=== PATIENT | male | born 1950 | race Caucasian/White ===

== ENCOUNTER 2017-11-17 13:11 | Emergency (ER) | payer OTHER, MEDICARE ==
[2017-11-17 13:18] VITALS: BMI 31.1
[2017-11-17] MEDS ORDERED: ACETAMINOPHEN 500 MG TABLET (FP) PO ONE (13:32)
--- NOTE | 2017-11-17 13:36 | PDOC ---
History of Present Illness - General Chief Complaint: SIRS, Suspected/Possible Stated Complaint: PAIN Time Seen by Provider: 11/17/17 13:30 History Source: Patient Exam Limitations: No Limitations - History of Present Illness Timing/Duration: reports: getting worse Severity: reports: mild, moderate Associated Symptoms: reports: chest pain/soreness, fever/chills Past History - Past Medical History Allergies/Adverse Reactions: Allergies Allergy/AdvReac Type Severity Reaction Status Date / Time No Known Allergies Allergy Verified 11/17/17 13:13 COPD: No - Immunization History Immunization Up to Date: Yes - Suicide/Smoking/Psychosocial Hx Smoking History: Never smoked *Physical Exam - Vital Signs Last Vital Signs Temp Pulse Resp BP Pulse Ox 101.2 F H 81 20 130/60 97 11/17/17 13:13 11/17/17 13:13 11/17/17 13:13 11/17/17 13:13 11/17/17 13:13 *DC/Admit/Observation/Transfer - Discharge Dispostion Disposition: HOME Condition at time of disposition: Stable Decision to Admit order: No - Referrals Referrals: ON STAFF,NOT [Primary Care Provider] - - Patient Instructions - Post Discharge Activity
[2017-11-17] MEDS ORDERED: ACETAMINOPHEN 500 MG TABLET (FP) ONE (13:37)
[2017-11-17 14:06] LABS: URINE APPEARANCE SLCLOUDY; URINE BILIRUBIN NEGATIVE (<2.0 mg/dL); URINE COLOR DKYELLOW; URINE GLUCOSE (UA) NEGATIVE (NEGATIVE); URINE KETONE NEGATIVE (NEGATIVE); URINE LEUK ESTERASE NEGATIVE (NEGATIVE); URINE NITRITE NEGATIVE (NEGATIVE); URINE UROBILINOGEN NEGATIVE mg/dL (0.2-1.0)
[2017-11-17] MEDS ORDERED: SODIUM CHLORIDE 1,000 ML IV STA ×2 (14:09→18:01)
[2017-11-17 14:18] LABS: URINE PROTEIN 1+ (NEGATIVE)
[2017-11-17 14:24] LABS: EPI CELLS RARE /HPF (FEW); URINE BACTERIA FEW /hpf (NONE SEEN); URINE MUCUS RARE
[2017-11-17 14:41] LABS: BASO % 0.3 % (0-2.0); HEMATOCRIT 42.1 % (35.4-49); HEMOGLOBIN 14.5 GM/dL (11.7-16.9); LYMPH % 5.1 % (8-40); MCH 30.5 pg (25.7-33.7); MCHC 34.3 g/dl (32.0-35.9); MEAN CELL VOLUME 88.9 fl (80-96); MEAN PLT VOLUME 7.6 fl (7.5-11.1); MONO % 9.5 % (3.8-10.2); NEUT % 85.1 % (42.8-82.8); PLATELET COUNT 154 K/MM3 (134-434); RBC 4.74 M/mm3 (4.00-5.60); RDW 13.6 % (11.9-15.9); WHITE BLOOD COUNT 9.8 K/mm3 (4.0-10.0)
[2017-11-17 14:59] LABS: ALBUMIN 3.4 g/dl (3.4-5.0); ALK PHOS 57 U/L (45-117); ANION GAP 6 (8-16); BILIRUBIN,TOTAL 1.1 mg/dL (0.2-1.0); BLOOD UREA NITROGEN 16 mg/dL (7-18); CALCIUM 8.4 mg/dL (8.5-10.1); CHLORIDE 104 mmol/L (98-107); CO2 27 mmol/L (21-32); GLUCOSE,RANDOM 129 mg/dL (74-106); POTASSIUM 4.3 mmol/L (3.5-5.1); SGOT/AST 15 U/L (15-37); SGPT/ALT 19 U/L (12-78); SODIUM 137 mmol/L (136-145); TOT PROT 6.7 g/dl (6.4-8.2)
[2017-11-17 15:04] LABS: LIPASE 205 U/L (73-393)
--- NOTE | 2017-11-17 16:31 | PDOC ---
History of Present Illness - General Chief Complaint: SIRS, Suspected/Possible Stated Complaint: PAIN Time Seen by Provider: 11/17/17 13:30 History Source: Patient Exam Limitations: No Limitations - History of Present Illness Travel History: No Initial Comments: 11/17/17 15:19 67-year-old male presents to ED with complaints of fever and chills since last night now associated with lower abdominal pain without nausea vomiting or diarrhea. Patient states returned from [facility] when he was eating numerous restaurants including meats and rash along with a cream sauce. Patient denies medical history but states history of enlarged prostate with prostatectomy. Patient states no recent illness or urinary complaints time. Timing/Duration: reports: constant Quality: reports: moderate, cramping Abdominal Pain Onset Location: reports: LLQ Pain Radiation: reports: flank Activities at Onset: reports: none Aggravating Factors: improves with: None Alleviating Factors: improves with: None Past History - Past Medical History Allergies/Adverse Reactions: Allergies Allergy/AdvReac Type Severity Reaction Status Date / Time No Known Allergies Allergy Verified 11/17/17 13:13 Home Medications: Ambulatory Orders Levofloxacin [Levaquin] 750 mg PO DAILY #5 tablet 11/17/17 COPD: No - Immunization History Immunization Up to Date: Yes - Suicide/Smoking/Psychosocial Hx Smoking History: Never smoked Patient Lives Alone: No Lives with/in: spouse/SO Review of Systems - Review of Systems Able to Perform ROS?: Yes Constitutional: Yes: Chills, Fever, Malaise HEENTM: No: Symptoms Reported Respiratory: No: Symptoms reported Cardiac (ROS): No: Symptoms Reported ABD/GI: Yes: Abdominal cramping : No: Symptoms Reported Musculoskeletal: No: Symptoms Reported Integumentary: No: Symptoms Reported Neurological: No: Symptoms reported Hematologic/Lymphatic: No: Symptoms Reported *Physical Exam - Vital Signs Last Vital Signs Temp Pulse Resp BP Pulse Ox 101.2 F H 81 20 130/60 97 11/17/17 13:13 11/17/17 13:13 11/17/17 13:13 11/17/17 13:13 11/17/17 13:13 - Physical Exam General Appearance: Yes: Nourished, Appropriately Dressed. No: Apparent Distress HEENT: positive: EOMI, KEITH, TMs Normal, Pharynx Normal. negative: Pale Conjunctivae Neck: positive: Supple Respiratory/Chest: positive: Lungs Clear, Normal Breath Sounds. negative: Respiratory Distress, Accessory Muscle Use Cardiovascular: positive: Regular Rhythm, Regular Rate. negative: Murmur Gastrointestinal/Abdominal: positive: Normal Bowel Sounds, Soft, Tenderness ( left lower quadrant/ left flank). negative: Distended, Guarding, Rebound Integumentary: positive: Normal Color, Warm, Moist. negative: Rash Neurologic: positive: Motor Strength 5/5 (ambulatory) ED Treatment Course - LABORATORY CBC & Chemistry Diagram: 11/17/17 14:25 11/17/17 14:25 - ADDITIONAL ORDERS Additional order review: Laboratory Results 11/17/17 11/17/17 11/17/17 14:34 14:25 01:50 Sodium 137 Potassium 4.3 Chloride 104 Carbon Dioxide 27 Anion Gap 6 L BUN 16 Creatinine 1.0 Creat Clearance w eGFR > 60 Random Glucose 129 H Lactic Acid 1.1 Calcium 8.4 L Magnesium 2.0 Total Bilirubin 1.1 H AST 15 ALT 19 Alkaline Phosphatase 57 Total Protein 6.7 Albumin 3.4 Lipase 205 Urine Color Dkyellow Urine Appearance Slcloudy Urine pH 5.0 Ur Specific [place] 1.021 Urine Protein 1+ H Urine Glucose (UA) Negative Urine Ketones Negative Urine Blood 1+ H Urine Nitrite Negative Urine Bilirubin Negative Urine Urobilinogen Negative Ur Leukocyte Esterase Negative Urine WBC (Auto) 4 Urine RBC (Auto) 23 Ur Epithelial Cells Rare Urine Bacteria Few Urine Mucus Rare 11/17/17 13:30 Influenza Types A,B Antigen - Final Nasopharyngeal Swab - Final 11/17/17 14:25 RBC 4.74 MCV 88.9 MCHC 34.3 RDW 13.6 MPV 7.6 Neutrophils % 85.1 H Lymphocytes % 5.1 L Monocytes % 9.5 Eosinophils % 0.0 Basophils % 0.3 - RADIOLOGY Radiology Studies Ordered: Category Date Time Status ABDOMEN & PELVIS CT W/O CONTR [CT] Stat CT Scan 11/17/17 15:24 Ordered - Medications Given in the ED: ED Medications Discontinued Medications Generic Name Dose Route Start Last Admin Trade Name Freq PRN Reason Stop Dose Admin Acetaminophen 1,000 mg 11/17/17 13:32 11/17/17 13:38 Tylenol - PO 11/17/17 13:33 1,000 mg ONCE ONE Administration Sodium Chloride 1,000 mls @ 1,000 mls/hr 11/17/17 14:09 11/17/17 14:26 Normal Saline - IV 11/17/17 15:08 1,000 mls/hr ASDIR STA Administration Medical Decision Making - Medical Decision Making 11/17/17 15:31 Patient complains of fever and lower abdominal pain. Patient concerning for renal colic, UTI, colitis versus diverticulitis versus foodborne illness. Patient ordered for labs, IV fluids, urine, and will consider CT once labs are resulting. 11/17/17 16:33 Laboratory Tests 11/17/17 11/17/17 11/17/17 01:50 14:25 14:25 WBC 9.8 Hgb 14.5 Hct 42.1 Neutrophils % 85.1 H Sodium 137 Potassium 4.3 Chloride 104 Carbon Dioxide 27 Anion Gap 6 L BUN 16 Creatinine 1.0 Creat Clearance w eGFR > 60 Random Glucose 129 H Lactic Acid Calcium 8.4 L Magnesium 2.0 Total Bilirubin 1.1 H AST 15 ALT 19 Lipase 205 Urine Protein 1+ H Urine Blood 1+ H Urine WBC (Auto) 4 Urine RBC (Auto) 23 11/17/17 14:34 WBC Hgb Hct Neutrophils % Sodium Potassium Chloride Carbon Dioxide Anion Gap BUN Creatinine Creat Clearance w eGFR Random Glucose Lactic Acid 1.1 Calcium Magnesium Total Bilirubin AST ALT Lipase Urine Protein Urine Blood Urine WBC (Auto) Urine RBC (Auto) Influences swab negative. Patient ordered for CAT scan of the abdomen and pelvis. *DC/Admit/Observation/Transfer Diagnosis at time of Disposition: RLL pneumonia - Discharge Dispostion Disposition: HOME Condition at time of disposition: Stable - Prescriptions Prescriptions: Levofloxacin [Levaquin] 750 mg PO DAILY #5 tablet - Referrals Referrals: ON STAFF,NOT [Primary Care Provider] - - Patient Instructions Printed Discharge Instructions: Pneumonia-Adult Additional Instructions: take levaquin as prescribed. take tylenol very 4- 6 hours for fever take ibuprofen every 6 hours as needed for fever follow up with your doctor as soon as possible. - Post Discharge Activity
[2017-11-17] MEDS ORDERED: IBUPROFEN 600 MG TABLET (FP) PO ONE ×2 (18:11→18:20)
--- NOTE | 2017-11-17 19:32 | PDOC ---
*Physical Exam - Vital Signs Last Vital Signs Temp Pulse Resp BP Pulse Ox 103.0 F H 85 16 143/75 98 11/17/17 18:08 11/17/17 18:08 11/17/17 18:08 11/17/17 18:08 11/17/17 18:08 - Physical Exam General Appearance: Yes: Appropriately Dressed Respiratory/Chest: positive: Rapid RR, Other (right posterior crackles) Extremity: positive: Normal Capillary Refill, Normal Inspection, Normal Range of Motion Integumentary: positive: Normal Color, Dry, Warm Neurologic: positive: Fully Oriented, Alert, Normal Mood/Affect ED Treatment Course - LABORATORY CBC & Chemistry Diagram: 11/17/17 14:25 11/17/17 14:25 - ADDITIONAL ORDERS Additional order review: Laboratory Results 11/17/17 11/17/17 11/17/17 14:34 14:25 01:50 Sodium 137 Potassium 4.3 Chloride 104 Carbon Dioxide 27 Anion Gap 6 L BUN 16 Creatinine 1.0 Creat Clearance w eGFR > 60 Random Glucose 129 H Lactic Acid 1.1 Calcium 8.4 L Magnesium 2.0 Total Bilirubin 1.1 H AST 15 ALT 19 Alkaline Phosphatase 57 Total Protein 6.7 Albumin 3.4 Lipase 205 Urine Color Dkyellow Urine Appearance Slcloudy Urine pH 5.0 Ur Specific [place] 1.021 Urine Protein 1+ H Urine Glucose (UA) Negative Urine Ketones Negative Urine Blood 1+ H Urine Nitrite Negative Urine Bilirubin Negative Urine Urobilinogen Negative Ur Leukocyte Esterase Negative Urine WBC (Auto) 4 Urine RBC (Auto) 23 Ur Epithelial Cells Rare Urine Bacteria Few Urine Mucus Rare 11/17/17 13:30 Influenza Types A,B Antigen - Final Nasopharyngeal Swab - Final 11/17/17 14:25 RBC 4.74 MCV 88.9 MCHC 34.3 RDW 13.6 MPV 7.6 Neutrophils % 85.1 H Lymphocytes % 5.1 L Monocytes % 9.5 Eosinophils % 0.0 Basophils % 0.3 - RADIOLOGY Radiology Studies Ordered: Category Date Time Status CHEST PA & LAT [RAD] Stat Radiology 11/17/17 19:32 Ordered - Medications Given in the ED: ED Medications Discontinued Medications Generic Name Dose Route Start Last Admin Trade Name Freq PRN Reason Stop Dose Admin Acetaminophen 1,000 mg 11/17/17 13:32 11/17/17 13:38 Tylenol - PO 11/17/17 13:33 1,000 mg ONCE ONE Administration Sodium Chloride 1,000 mls @ 1,000 mls/hr 11/17/17 14:09 11/17/17 14:26 Normal Saline - IV 11/17/17 15:08 1,000 mls/hr ASDIR STA Administration Sodium Chloride 1,000 mls @ 1,000 mls/hr 11/17/17 18:01 11/17/17 18:03 Normal Saline - IV 11/17/17 19:00 1,000 mls/hr ASDIR STA Administration Ibuprofen 600 mg 11/17/17 18:20 11/17/17 18:28 Motrin - PO 11/17/17 18:21 600 mg ONCE ONE Administration Medical Decision Making - Medical Decision Making Chest xray: + RLL pneumonia CTAP: pneumonia patient to be dced with antibiotics *DC/Admit/Observation/Transfer Diagnosis at time of Disposition: RLL pneumonia - Discharge Dispostion Disposition: HOME Condition at time of disposition: Stable - Prescriptions Prescriptions: Levofloxacin [Levaquin] 750 mg PO DAILY #5 tablet - Referrals Referrals: ON STAFF,NOT [Primary Care Provider] - - Patient Instructions Printed Discharge Instructions: Pneumonia-Adult Additional Instructions: take levaquin as prescribed. take tylenol very 4- 6 hours for fever take ibuprofen every 6 hours as needed for fever follow up with your doctor as soon as possible. - Post Discharge Activity
[2017-11-17 20:12] VITALS: BP 147/68; PULSE 77; TEMP 100
== END 2017-11-17 21:29 | disposition home or self-care (01) ==
LOC: JERFT 13:11 → JER 13:11
PROC: 3E0337Z Introduction of Electrolytic and Water Balance Substance into Peripheral Vein, Percutaneous Approach (ICD-10-PCS; principal; 2017-11-17)
PROC: 3E0337Z Introduction of Electrolytic and Water Balance Substance into Peripheral Vein, Percutaneous Approach (ICD-10-PCS; 2017-11-17)
PROC: 3E03329 Introduction of Other Anti-infective into Peripheral Vein, Percutaneous Approach (ICD-10-PCS; 2017-11-17)
DX: J18.9 Pneumonia, unspecified organism (principal)
CPT/HCPCS: 36415; 71046-TC-FY; 74176-TC; 80053; 81003; 81015; 83605; 83690; 83735; 85025; 87804; 96361; 96365; 99285-25; J7030